=== PATIENT | male | born 1995 | race Caucasian/White ===

== ENCOUNTER 2017-11-12 06:56 | Emergency (ER) | payer SELFPAY ==
[~2017-11-12] VITALS: Ht 165.1 cm; Wt 72.7 kg
[2017-11-12] MEDS ORDERED: BACL10TA PO (07:06)
[2017-11-12] MEDS ORDERED: CARB200T6 PO (07:06)
[2017-11-12] MEDS ORDERED: CALC-877 PO (07:06)
[2017-11-12] MEDS ORDERED: VITAD1000 PO (07:06)
[2017-11-12] MEDS ORDERED: ISON300 PO (07:06)
[2017-11-12] MEDS ORDERED: PREG50 PO (07:06)
[2017-11-12] MEDS ORDERED: LEVE250T55 PO (07:06)
[2017-11-12] MEDS ORDERED: PYRI50TA9 PO (07:06)
[2017-11-12] MEDS ORDERED: PREGABALIN 50 MG CAPSULE PO ONE (07:30)
[2017-11-12] MEDS ORDERED: LevETIRAcetam 250 MG TABLET PO ONE (07:30)
[2017-11-12] MEDS ORDERED: CarBAMazepine 200 MG TABLET PO ONE (07:30)
[2017-11-12 08:18] VITALS: BP 135/78
== END 2017-11-12 08:57 | disposition home or self-care (01) ==
LOC: EMS 06:59
DX: G40.909 Epilepsy, unspecified, not intractable, without status epilepticus (principal); Z88.1 Allergy status to other antibiotic agents
CPT/HCPCS: 99284